=== PATIENT | male | born 1965 | race Caucasian/White ===

== ENCOUNTER 2017-02-11 12:35 | Emergency (ER) | payer SELFPAY ==
[~2017-02-11] VITALS: Ht 172.7 cm; Wt 85.0 kg
[2017-02-11] MEDS ORDERED: ADDE10 PO (13:25)
[2017-02-11] MEDS ORDERED: ESCI20TA PO (13:25)
[2017-02-11] MEDS ORDERED: CLON1TAB PO (13:25)
[2017-02-11] MEDS ORDERED: DIAZEPAM 5 MG/ML 2 ML SYRINGE IM ONE (15:15)
[2017-02-11] MEDS ORDERED: ESCITALOPRAM OXALATE 20 MG TABLET PO ONE (15:15)
[2017-02-11 16:30] VITALS: BP 141/89
== END 2017-02-11 17:02 | disposition home or self-care (01) ==
LOC: EMS 12:38
DX: F19.10 Other psychoactive substance abuse, uncomplicated (principal); F32.9 Major depressive disorder, single episode, unspecified; R11.2 Nausea with vomiting, unspecified; R53.1 Weakness; F11.90 Opioid use, unspecified, uncomplicated; Z91.010 Allergy to peanuts; F17.200 Nicotine dependence, unspecified, uncomplicated
CPT/HCPCS: 96372; 99283; 99406; J1885